=== PATIENT | female | born 1960 | race Caucasian/White ===

== ENCOUNTER 2016-03-09 08:17 | Emergency (ER) | payer OTHER ==
--- NOTE | 2016-03-09 13:43 | RAD ---
Indication: Head injury. CT of the brain was performed without IV contrast. Ventricular structures are midline. No midline shift is noted. The extraction spaces are unremarkable. There is no evidence of intracranial mass or hemorrhage. No other high or low density lesions are identified. Mastoid air cells and paranasal sinuses are otherwise unremarkable. IMPRESSION: No intracranial mass or hemorrhage is noted.
--- NOTE | 2016-03-09 14:00 | RAD ---
HISTORY: Fall, pain, AC joint point tenderness COMPARISONS: None VIEWS: 3, Frontal internal rotation, external rotation, and outlet views of the right shoulder FINDINGS: BONE DENSITY: Normal. BONES: There is no displaced fracture. JOINTS: There is osteoarthritis of the AC joint. ALIGNMENT: There is no dislocation. SOFT TISSUES: Unremarkable. OTHER FINDINGS: None. IMPRESSION: OSTEOARTHRITIS. NO ACUTE OSSEOUS INJURY. IF SYMPTOMS PERSIST, RECOMMEND REPEAT IMAGING.
--- NOTE | 2016-03-09 14:03 | RAD ---
Indication: Pain between the right fourth and fifth mid metacarpals. 2 views of the hand demonstrates shortening of the fifth metacarpal. No fracture is noted. IMPRESSION: Shortening of the fifth metacarpal without fracture.
[2016-03-09 14:32] VITALS: BP 129/82
--- NOTE | 2016-03-19 11:52 | ED ---
Bridgette Altamirano Janilya, scribed for Yari Brown MD on 03/09/16 at 1423 . Head Injury - HPI Summary HPI Summary: A 55 y/o female came in to [facility] due to head injury that occurred this morning at 0645. Pt states she fell from the 2nd story to the 1st floor because it was dark. Pt hit her head and bruised her right hand. She has hematoma on top of her head. She also reports mild right shoulder pain. She doesn't think the hand is broken. Pt denies back, neck, abd, elbow, wrist pain. Pt is not on bloodthinners. - History Of Current Complaint Chief Complaint: EDHeadInjury Stated Complaint: FALL / HIT HEAD/RT HAND INJURY Time Seen by Provider: 03/09/16 14:00 Hx Obtained From: Patient Hx Last Menstrual Period: nothing since november Mechanism Of Injury: Fall From Height Of: - 2nd story Onset/Duration: Started Hours Ago, Traumatic, Still Present Onset of Pain: Hours Severity Currently: Moderate Severity Initially: Moderate Pain Intensity: 4 Pain Scale Used: 0-10 Numeric Location of Head Injury: Parietal Associated Signs And Symptoms: Bruising - right hand - Risk Factors SDH Risk Factor: Negative - Allergies/Home Medications Allergies/Adverse Reactions: Allergies Allergy/AdvReac Type Severity Reaction Status Date / Time No Known Allergies Allergy Verified 03/09/16 08:41 PMH/Surg Hx/FS Hx/Imm Hx Endocrine/Hematology History: Reports: Hx Thyroid Disease - hx of graves disease - no meds Denies: Hx Diabetes Cardiovascular History: Denies: Hx Congestive Heart Failure, Hx Deep Vein Thrombosis, Hx Hypertension , Hx Myocardial Infarction, Hx Pacemaker/ICD Respiratory History: Denies: Hx Asthma, Hx Chronic Obstructive Pulmonary Disease (COPD), Hx Lung Cancer, Hx Pneumonia, Hx Pulmonary Embolism GI History: Denies: Hx Gall Bladder Disease, Hx Gastrointestinal Bleed, Hx Ulcer, Hx Urosepsis History: Denies: Hx Kidney Stones, Hx Renal Disease Sensory History: Reports: Hx Contacts or Glasses - GLASSES OCCASIONALLY Denies: Hx Hearing Aid Opthamlomology History: Reports: Hx Contacts or Glasses - GLASSES OCCASIONALLY Neurological History: Reports: Hx Migraine - HX OF, NONE RECENTLY Denies: Hx Dementia, Hx Seizures, Hx Transient Ischemic Attacks (TIA) Psychiatric History: Denies: Hx Anxiety, Hx Depression, Hx Schizophrenia, Hx Bipolar Disorder - Surgical History Surgery Procedure, Year, and Place: 2004 LAPAROSCOPIC APPENDECTOMY, [facility] [place]. 2009 SINUS SURGERY, [facility] [place]. Hysterectomy 2015 Hx Anesthesia Reactions: No Infectious Disease History: No Infectious Disease History: Reports: Hx Hepatitis - HEP A A CHILD Denies: Hx Clostridium Difficile, Hx Human Immunodeficiency Virus (HIV), Hx of Known/Suspected MRSA, Hx Shingles, Hx Tuberculosis, Traveled Outside the [place] in Last 30 Days - Family History Known Family History: Positive: Cardiac Disease, Hypertension, Diabetes - Social History Lives: With Family Alcohol Use: Occasionally Substance Use Type: Reports: None Smoking Status (MU): Never Smoked Tobacco Review of Systems Musculoskeletal: Negative - Pt denies back, neck, abd, elbow, wrist pain. Positive: Arthralgia - right shoulder and right hand pain, Myalgia - right shoulder and right hand pain Positive: Bruising - right hand, Other - hematoma on top of head All Other Systems Reviewed And Are Negative: Yes Physical Exam Triage Information Reviewed: Yes Vital Signs On Initial Exam: Initial Vitals Temp Pulse Resp BP Pulse Ox 97.3 F 67 16 126/79 100 03/09/16 08:41 03/09/16 08:41 03/09/16 08:41 03/09/16 08:41 03/09/16 08:41 Vital Signs Reviewed: Yes Appearance: Positive: Well-Appearing, No Pain Distress Skin: Positive: Warm, Skin Color Reflects Adequate Perfusion, Dry Head/Face: Positive: Other - Hematoma of mid-parietal lobe Eyes: Positive: EOMI, DEL ENT: Positive: Pharynx normal, TMs normal Neck: Positive: Supple, Nontender Respiratory/Lung Sounds: Positive: Clear to Auscultation, Breath Sounds Present. Negative: Rales, Rhonchi, Wheezes Cardiovascular: Positive: RRR, Other - no gallops. Negative: Murmur, Rub Abdomen Description: Positive: Nontender, Soft. Negative: Distended, Guarding - no rebound Bowel Sounds: Positive: Present Musculoskeletal: Positive: Strength/ROM Intact, Other - Tender AC joint; small contusion between 4th or 5th mid metacarpal. Negative: Edema Left, Edema Right Neurological: Positive: Sensory/Motor Intact, Alert, Oriented to Person Place, Time, CN Intact II-III Psychiatric: Positive: Affect/Mood Appropriate Diagnostics - Vital Signs Vital Signs Temp Pulse Resp BP Pulse Ox 03/09/16 08:41 97.3 F 67 16 126/79 100 - Laboratory Lab Statement: Any lab studies that have been ordered have been reviewed, and results considered in the medical decision making process. - CT brain CT Interpretation: No Acute Changes - IMPRESSION: No intracranial mass or hemorrhage is noted. CT Interpretation Completed By: Radiologist hand CT Interpretation: No Acute Changes - IMPRESSION: Shortening of the fifth metacarpal without fracture. CT Interpretation Completed By: Radiologist shoulder CT Interpretation: No Acute Changes - IMPRESSION: OSTEOARTHRITIS. NO ACUTE OSSEOUS INJURY. IF SYMPTOMS PERSIST, RECOMMEND REPEAT IMAGING. CT Interpretation Completed By: Radiologist Head Injury Course/Dx - Diagnoses Provider Diagnoses: Concussion, AC separation, Hand contusion Discharge - Discharge Plan Condition: Stable Disposition: HOME Patient Education Materials: Concussion (ED), Acromioclavicular Separation (ED) , Hematoma (ED) Referrals: Tiana Cruz MD [Primary Care Provider] - Additional Instructions: Follow up with your primary care provider if symptoms persist or worsen. The documentation as recorded by the Bridgette rosas Janilya accurately reflects the service I personally performed and the decisions made by Stephanie orr Justine, MD.
== END 2016-03-09 14:31 | disposition home or self-care (01) ==
LOC: ED 08:17
DX: S06.0X0A Concussion without loss of consciousness, initial encounter (principal); S60.221A Contusion of right hand, initial encounter; M24.311 Pathological dislocation of right shoulder, not elsewhere classified; W17.89XA Other fall from one level to another, initial encounter; Y93.9 Activity, unspecified; Y92.9 Unspecified place or not applicable; M19.011 Primary osteoarthritis, right shoulder
CPT/HCPCS: 70450; 99282